=== PATIENT | female | born 1975 | race Two or more races ===

== ENCOUNTER → 2019-08-23 | Emergency (ER) | payer OTHER ==
[~2019-08-23] VITALS: Ht 160 cm; Wt 83.5 kg
[~2019-08-23] MED LIST: PROTONIX20 MG; TENORMIN25 MG
== END | disposition left against medical advice (07) ==
LOC: ER 16:21
DX: K80.10 Calculus of gallbladder with chronic cholecystitis without obstruction (principal); R10.31 Right lower quadrant pain; I10 Essential (primary) hypertension

== ENCOUNTER 2019-09-11 12:26 | Inpatient (IN) | payer OTHER ==
[~2019-09-11] VITALS: Ht 160 cm; Wt 83.0 kg
== END 2019-09-16 13:26 | disposition home or self-care (01) | DRG 760 ==
LOC: ER 12:26 → EDBD 23:20 → MEDI 23:20
PROVIDERS: ADMIT Internal Medicine; ATTEND Internal Medicine
PROC: BW4GZZZ Ultrasonography of Pelvic Region (ICD-10-PCS; principal; 2019-09-12)
PROC: CB2YYZZ Tomographic (Tomo) Nuclear Medicine Imaging of Respiratory System using Other Radionuclide (ICD-10-PCS; 2019-09-13)
DX: N83.291 Other ovarian cyst, right side (principal); K80.10 Calculus of gallbladder with chronic cholecystitis without obstruction; I10 Essential (primary) hypertension; R00.0 Tachycardia, unspecified; T36.8X5A Adverse effect of other systemic antibiotics, initial encounter; Z20.828 Contact with and (suspected) exposure to other viral communicable diseases

== ENCOUNTER 2019-09-22 19:32 | Emergency (ER) | payer OTHER ==
[~2019-09-22] VITALS: Ht 160 cm; Wt 83.0 kg
== END 2019-09-22 21:21 | disposition home or self-care (01) ==
LOC: ER 19:32
DX: R10.813 Right lower quadrant abdominal tenderness (principal); I10 Essential (primary) hypertension

== ENCOUNTER 2019-10-07 09:15 | Inpatient (IN) | payer OTHER ==
[~2019-10-07] VITALS: Ht 160 cm; Wt 78.9 kg
== END 2019-10-15 14:09 | disposition home or self-care (01) | DRG 413 ==
LOC: ADM 09:15 → O/R 10-13 05:00 → SURH 10-13 07:00 → CIR.AMB 10-13 09:15 → EDSTATUS 10-13 09:15 → SURH 10-13 09:15
PROVIDERS: Obstetrics & Gynecology Gynecologic Oncology; ADMIT Surgery; ATTEND Surgery
PROC: 0DTJ0ZZ Resection of Appendix, Open Approach (ICD-10-PCS; 2019-10-13)
PROC: 0DBU0ZZ Excision of Omentum, Open Approach (ICD-10-PCS; 2019-10-13)
PROC: 0DNW0ZZ Release Peritoneum, Open Approach (ICD-10-PCS; 2019-10-13)
PROC: 0WQF0ZZ Repair Abdominal Wall, Open Approach (ICD-10-PCS; 2019-10-13)
PROC: 0UT50ZZ Resection of Right Fallopian Tube, Open Approach (ICD-10-PCS; 2019-10-13)
PROC: 0UT00ZZ Resection of Right Ovary, Open Approach (ICD-10-PCS; 2019-10-13)
PROC: 4A033R1 Measurement of Arterial Saturation, Peripheral, Percutaneous Approach (ICD-10-PCS; 2019-10-13)
PROC: 0FT40ZZ Resection of Gallbladder, Open Approach (ICD-10-PCS; principal; 2019-10-13 12:30)
PROC: 0FC90ZZ Extirpation of Matter from Common Bile Duct, Open Approach (ICD-10-PCS; 2019-10-13 12:30)
DX: K80.10 Calculus of gallbladder with chronic cholecystitis without obstruction (principal); I10 Essential (primary) hypertension; K42.9 Umbilical hernia without obstruction or gangrene; K66.0 Peritoneal adhesions (postprocedural) (postinfection); R97.0 Elevated carcinoembryonic antigen [CEA]